=== PATIENT | female | born 1970 | race Caucasian/White ===

== ENCOUNTER 2020-03-26 12:44 | Emergency (ER) | payer BC, SELFPAY ==
[2020-03-26 13:20] VITALS: BP 149/68; PULSE 61; RESP 18; TEMP 36.9; O2SAT 99; BMI 29.7
--- NOTE | 2020-03-26 13:22 | HMH.EDUTC ---
[facility] [place] Clinical Impression: Exposure to COVID-19 virus Sinusitis Qualifiers: Sinusitis location: unspecified location Chronicity: acute Recurrence: non-recurrent Qualified Code(s): J01.90 - Acute sinusitis, unspecified Disposition: Home, Self-Care Condition on Discharge: Good Instructions: Sinusitis, DI for Sinusitis Additional Instructions: Drink plenty of fluids. Take tylenol for pain or fever. Take the medications as directed. Follow up with your regular doctor. GO TO THE ER FOR ANY WORSENING SYMPTOMS Prescriptions: Ondansetron [Zofran 4mg ODT] 4 mg PO Q8HP PRN #20 tab.rapdis PRN Reason: Nausea Transmission Status: Received by [email or web address] #[id number] Azithromycin [Z-Jasen 250mg Tab*] 250 mg PO UD DOSE PK #6 tab Transmission Status: Received by [email or web address] #[id number] Referrals: Narinder Mcbride [Primary Care Provider] - Forms: Work/School Release Time of Disposition: 13:38 Medical Decision Making - Medical Records Medical records reviewed: No: I reviewed the patient's medical records. - Cole Inquiry Pt receiving controlled substance: No Vital Signs: 03/26/20 13:20 03/26/20 13:46 Temperature 98.4 F 98.4 F Temperature Source Oral Pulse Rate 61 Pulse Rate [Right Brachial] 61 Respiratory Rate 18 18 Blood Pressure 149/68 H Blood Pressure [Right Arm] 149/68 H Blood Pressure Mean [Right Arm] 95 Blood Pressure Source [Right Arm] Automatic Cuff Blood Pressure Position [Right Arm] Sitting 02 Sat by Pulse Oximetry 99 Oxygen Delivery Method Room Air Orders (Tests/Meds): ORDERS Category Date Time Status Covid-19 Nasal PCR Sendout [facility] 03/26/20 13:10 Received [facility] [place] HPI - General Stated complaint: covid exposure Time Seen by Provider: 03/26/20 13:22 - History of Present Illness Provider Complaint: She states that for the past 3 days she has had intermitent nausea and sinus drainage. She was exposed to covid at her work last week. - Related Data Previous Rx's Medication Instructions Recorded Azithromycin [Z-Ajsen 250mg Tab*] 250 mg PO UD DOSE PK #6 tab 03/26/20 Ondansetron [Zofran 4mg ODT] 4 mg PO Q8HP PRN #20 tab.rapdis 03/26/20 Allergies Allergy/AdvReac Type Severity Reaction Status Date / Time erythromycin base Allergy Verified 03/26/20 13:36 Penicillins Allergy Verified 03/26/20 13:36 [facility] History - Hepatitis A Screen Attestation statement:: This patient has been screened for Hepatitis A risk factors. I have reviewed the patient's past medical history: Yes ROS Obtained: Yes All systems reviewed & no additional complaints - Constitutional Constitutional: Reports system reviewed and no additional complaints, except as docu - Eyes Eyes: Reports system reviewed and no additional complaints, except as docu - ENT Ears, Nose, Mouth, and Throat: Reports system reviewed and no additional complaints, except as docu - Cardiovascular Cardiovascular: Reports system reviewed and no additional complaints, except as docu - Respiratory Respiratory: Yes system reviewed and no additional complaints, except as docu - Gastrointestinal Gastrointestingal: Reports: system reviewed and no additional complaints, except as docu Physical Exam - General General appearance: alert, in no apparent distress - Head Head exam: atraumatic, normocephalic, normal inspection - Eye Eye exam: Present: normal appearance, PERRL, EOMI - ENT ENT exam: Present: normal exam, normal oropharynx, mucous membranes moist, TM's normal bilaterally, normal external ear exam - Neck Neck exam: Present: normal inspection, full ROM, trachea midline. Absent: meningismus, lymphadenopathy - Chest Chest inspection: Present: normal inspection, symmetric chest wall rise. Absent: tenderness - Respiratory Respiratory exam: Present: normal lung sounds bilaterally. Absent: respiratory distress - Cardiovascular Cardiovascular exam:
[2020-03-26 13:46] VITALS: BP 149/68; PULSE 61; RESP 18; TEMP 36.9; O2SAT 99
[2020-03-28 14:44] LABS: Covid-19 Nasal PCR Sendout Lex NOT DETECTED
== END 2020-03-26 13:55 | disposition home or self-care (01) ==
PROVIDERS: Emergency Provider Nurse Practitioner Family; PCP Family Medicine
DX: Z20.828 Contact with and (suspected) exposure to other viral communicable diseases (principal); J01.90 Acute sinusitis, unspecified
CPT/HCPCS: 99201; U0004